=== PATIENT | female | born 1970 | race Caucasian/White ===

== ENCOUNTER 2019-07-10 15:50 | Emergency (ER) | payer OTHER ==
[2019-07-10] MEDS ORDERED: NS 0.9% 1000 ML** 1,000 ML IV ONE (16:39)
[2019-07-10] MEDS ORDERED: Ketorolac INJ* 30 MG/ML 1 ML VIAL IV PUSH ONE (16:39)
[2019-07-10 17:08] LABS: ABS Basophils 0.1 10^3/ul (0-0.2); ABS Eosinophils 0.1 10^3/ul (0-0.6); ABS Lymphocytes 1.7 10^3/ul (1.0-4.8); ABS Monocytes 0.4 10^3/ul (0-0.8); ABS Neutrophils 10.5 10^3/ul (1.5-7.7); Eosinophil % 1.1 %; Hematocrit 31 % (35-47); Hemoglobin 10.1 g/dL (12.0-16.0); Mean Corpuscular HGB Conc 33 g/dL (31-36); Mean Corpuscular Hemoglobin 28 pg (27-31); Mean Corpuscular Volume 86 fL (80-97); Mean Platelet Volume 7.6 fL (7.4-10.4); Platelet Count 377 10^3/uL (150-450); Red Blood Count 3.59 10^6 /uL (3.70-4.87); Red Cell Distribution Width 14 % (10-15); White Blood Count 12.8 10^3/uL (3.5-10.8)
--- NOTE | 2019-07-10 19:18 | ED ---
GI/ HPI - HPI Summary HPI Summary: 48 year old F presenting to [facility] accompanied by a supervisor boiler repair with a chief complaint of genitourinary pain and vaginal bleeding. Her bleeding onset 06/11/19 , and her severe pain onset today 07/10/19, alternating between steady and cramping pain. The patient rates the pain 10/10 in severity. Symptoms aggravated by nothing. Symptoms alleviated by subjectively high dosages of Motrin. The last time she took Motrin was this afternoon today. Patient has a history of dysmenorrhea. She has been experiencing constant abdominal pain every day unless she took Motrin, but the pain has never been as severe as it is today. Patient reports that the pain is preventing her from standing up, is causing her to sweat profusely, become dizzy, and experience near-syncopal events. While the patient has been bleeding, she has been passing large blood clots. Patient has previously been to the ED for similar symptoms on 06/24/19, and was discharged and prescribed a single control pill with the expectation that she would receive a formal control prescription through her follow-up OBGYN. However, her OBGYN clinic failed to follow up with the prescription. - History of Current Complaint Chief Complaint: EDVaginalBleeding Time Seen by Provider: 07/10/19 16:24 Stated Complaint: ABD PAIN PER PT Hx Obtained From: Patient, Family/Ethnic Origins Teacher - supervisor boiler repair Onset/Duration: Started Hours Ago - sometime today Timing: Constant Current Severity: Severe Vaginal Bleeding Description: Clots Pain Intensity: 10 Location of Pain: Diffuse Additional Location for Females: Uterus Pain Characteristics: Cramping Associated Signs and Symptoms: Positive: Diaphoresis, Other: - dizziness and near-syncopal events Additional Signs & Symptoms: Positive: Vaginal Bleeding Aggravating Factor(s): Nothing Alleviating Factor(s): Medication - Motrin - Allergy/Home Medications Allergies/Adverse Reactions: Allergies Allergy/AdvReac Type Severity Reaction Status Date / Time No Known Allergies Allergy Verified 06/24/19 18:28 PMH/Surg Hx/FS Hx/Imm Hx Endocrine/Hematology History: Denies: Hx Diabetes Cardiovascular History: Reports: Other Cardiovascular Problems/Disorders - hemochromatosis Respiratory History: Reports: Hx Asthma Sensory History: Reports: Hx Contacts or Glasses Opthamlomology History: Reports: Hx Contacts or Glasses - Cancer History Hx Chemotherapy: No Hx Radiation Therapy: No - Surgical History Surgical History: Yes Surgery Procedure, Year, and Place: oopherectomy [address] [facility] Infectious Disease History: No Infectious Disease History: Denies: Traveled Outside the [place] in Last 30 Days - Family History Known Family History: Positive: Blood Disorder - hemochromatosis, paternal, Other - breast CA and leukemia in mother - Social History Alcohol Use: Daily Alcohol Amount: two drinks after work Hx Substance Use: No Substance Use Type: Reports: None Hx Tobacco Use: Yes Smoking Status (MU): Heavy Every Day Tobacco Smoker Type: Cigarettes Amount Used/How Often: 1 PPD Review of Systems Negative: Fever Positive: Vomiting, Diarrhea All Other Systems Reviewed And Are Negative: Yes Physical Exam - Summary Physical Exam Summary: Appearance: The patient is in obvious pain and distress. Skin: The skin is warm and dry, and skin color reflects adequate perfusion. HEENT: The head is normocephalic and atraumatic. The pupils are equal and reactive. The conjunctivae are clear and without drainage. Nares are patent and without drainage. Mouth reveals moist mucous membranes, and the throat is without erythema and exudate. The external ears are intact. The ear canals are patent and without drainage. The tympanic membranes are intact. Neck: The neck is supple with full range of motion and non-tender. There are no carotid bruits. There is no neck vein distension. Respiratory: Chest is non-tender. Lungs are clear to auscultation and breath sounds are symmetrical and equal. Cardiovascular: Heart is regular rate and rhythm. There is no murmur or rub auscultated. There is no peripheral edema and pulses are symmetrical and equal. Abdomen: The abdomen is soft and non-tender. There are normal bowel sounds heard in all four quadrants and there is no organomegaly palpated. Musculoskeletal: There is no back tenderness noted. Extremities are non-tender with full range of motion. There is good capillary refill. There is no peripheral edema or calf tenderness elicited. Neurological: Patient is alert and oriented to person, place and time. The patient has symmetrical motor strength in all four extremities. Cranial nerves are grossly intact. Deep tendon reflexes are symmetrical and equal in all four extremities. Psychiatric: The patient has an appropriate affect and does not exhibit any anxiety or depression. Triage Information Reviewed: Yes Vital Signs On Initial Exam: Initial Vitals Temp Pulse Resp BP Pulse Ox 97.8 F 98 28 96/61 98 07/10/19 15:52 07/10/19 15:52 07/10/19 15:52 07/10/19 15:52 07/10/19 15:52 Vital Signs Reviewed: Yes Appearance: Positive: Pain Distress Diagnostics - Vital Signs Vital Signs Temp Pulse Resp BP Pulse Ox 07/10/19 18:00 75 99 07/10/19 17:00 81 15 100 07/10/19 16:41 72 12 171/82 99 07/10/19 16:18 73 25 117/60 100 07/10/19 16:13 76 100 07/10/19 15:52 97.8 F 98 28 96/61 98 - Laboratory Lab Results: Lab Results 07/10/19 07/10/19 Range/Units 16:57 16:57 WBC 12.8 H (3.5-10.8) 10^3/uL RBC 3.59 L (3.70-4.87) 10^6 /uL Hgb 10.1 L (12.0-16.0) g/dL Hct 31 L (35-47) % MCV 86 (80-97) fL MCH 28 (27-31) pg MCHC 33 (31-36) g/dL RDW 14 (10-15) % Plt Count 377 (150-450) 10^3/uL MPV 7.6 (7.4-10.4) fL Neut % (Auto) 82.3 % Lymph % (Auto) 13.0 % [place] % (Auto) 3.0 % Eos % (Auto) 1.1 % Baso % (Auto) 0.6 % Absolute Neuts (auto) 10.5 H (1.5-7.7) 10^3/ul Absolute Lymphs (auto) 1.7 (1.0-4.8) 10^3/ul Absolute Monos (auto) 0.4 (0-0.8) 10^3/ul Absolute Eos (auto) 0.1 (0-0.6) 10^3/ul Absolute Basos (auto) 0.1 (0-0.2) 10^3/ul Absolute Nucleated RBC 0.0 10^3/ul Nucleated RBC % 0.0 C-Reactive Protein 2.85 (<8.01) mg/L Result Diagrams: 07/10/19 16:57 Lab Statement: Any lab studies that have been ordered have been reviewed, and results considered in the medical decision making process. Re-Evaluation - Re-Evaluation First Eval Re-Evaluation Time: 19:09 Comment: ED Provider discussed with patient follow-up with Dr. Barr, Radiology. Patient agreed and will be discharged to home. GIGU Course/Dx - Course Course Of Treatment: Ms. Cook has had continued abdominal pain and bleeding in the 2 weeks and she was here. When she was here a CT scan revealed multiple fibroids including one central quite large one. She was referred to [facility] but hasn't seen them yet because of difficulty with the [place] insurance. She was in quite a bit of pain on arrival. She had been using ibuprofen pretty successfully until today. She was given IV ketorolac with good results here. Her hemoglobin has dropped from 12-10 in the 2 weeks. I consult with Dr. Marks who came and saw the patient. She is going to follow-up with him and was feeling improved. I gave her prescription for tramadol for symptomatic relief. - Diagnoses Provider Diagnoses: Fibroids - Physician Notifications Discussed Care Of Patient With: Elliot Barr Time Discussed With Above Provider: 17:30 Instructed by Provider To: Other - ED provider discussed patient follow-up with Dr. Barr, Radiology. Discharge ED - Sign-Out/Discharge Documenting (check all that apply): Patient Departure - home Patient Received Moderate/Deep Sedation with Procedure: No - Discharge Plan Condition: Stable Disposition: HOME Prescriptions: traMADol TAB* [Ultram*] 50 mg PO Q6HR PRN #20 tab MDD 4 PRN Reason: Pain Patient Education Materials: Dysmenorrhea (ED) Referrals: Elliot Barr MD [Medical Doctor] - 1 Day Marsha Brandon [Primary Care Provider] - 3 Days Additional Instructions: Please follow up with Dr. Barr, Radiologist, tomorrow. Additionally, please follow up with your primary care provider within the next three days. Return to the ED if you notice new or worsening symptoms. - Billing Disposition and Condition Condition: STABLE Disposition: Home - Attestation Statements Document Initiated by Scribe: Yes Documenting Scribe: Anders Canales and Lela Hernandez Provider For Whom Scribe is Documenting (Include Credential): Og Lopez MD Scribe Attestation: I, Anders Hernandez, scribed for Og Lopez MD on at 2136. Scribe Documentation Reviewed: Yes Provider Attestation: The documentation as recorded by the rolaibbrandie, Anders Hernandez accurately reflects the service I personally performed and the decisions made by me, Og Lopez MD Status of Scribe Document: Viewed
[2019-07-10 19:38] VITALS: BP 141/83
== END 2019-07-10 19:35 | disposition home or self-care (01) ==
LOC: ED 15:50
DX: D25.9 Leiomyoma of uterus, unspecified (principal); R10.2 Pelvic and perineal pain; N93.9 Abnormal uterine and vaginal bleeding, unspecified; R61 Generalized hyperhidrosis; R42 Dizziness and giddiness; R55 Syncope and collapse; R11.10 Vomiting, unspecified; R19.7 Diarrhea, unspecified; F17.210 Nicotine dependence, cigarettes, uncomplicated
CPT/HCPCS: 36415; 85025; 86140; 96361; 96374; 99282; J1885

== ENCOUNTER 2019-12-18 09:27 | Observation (INO) | payer OTHER ==
[2019-12-18] MEDS ORDERED: diPHENhydraMINE PO* 25 MG ONE (11:48)
[2019-12-18] MEDS ORDERED: Ibuprofen TAB* 800 MG PO ONE (12:00)
[2019-12-18] MEDS ORDERED: Ondansetron INJ* 2 MG/ML VIAL ONE (12:13)
[2019-12-18] MEDS ORDERED: Scopolamine 1.5 mg* PATCH ONE (12:13)
[2019-12-18] MEDS ORDERED: LORazepam TAB(*) 1 MG ONE (12:14)
[2019-12-18] MEDS ORDERED: oxyCODONE SR TAB(*) 10 MG TAB.SR ONE (12:14)
[2019-12-18 12:30] LABS: Hematocrit 39 % (35-47); Hemoglobin 12.8 g/dL (12.0-16.0); Mean Corpuscular HGB Conc 33 g/dL (31-36); Mean Corpuscular Hemoglobin 28 pg (27-31); Mean Corpuscular Volume 85 fL (80-97); Mean Platelet Volume 7.7 fL (7.4-10.4); Platelet Count 289 10^3/uL (150-450); Red Blood Count 4.58 10^6 /uL (3.70-4.87); Red Cell Distribution Width 14 % (10-15); White Blood Count 10.3 10^3/uL (3.5-10.8)
[2019-12-18] MEDS ORDERED: Clindamycin 900 MG/D5W BAG(*) 900 MG/50 ML BAG IVPB ONE (12:30)
[2019-12-18 12:40] LABS: Activated Partial Thrombo Time 36.2 seconds (26.0-38.0); INR 0.93 (0.82-1.09)
[2019-12-18] MEDS ORDERED: Heparin 2 UNITS/ML IVPREMIX* 2,000 ML IV ONE (12:47)
[2019-12-18] MEDS ORDERED: Lidocaine 1% INJ* 10 MG/ML 30 ML SDV ONE (12:47)
[2019-12-18] MEDS ORDERED: Iohexol 350 (CONTRAST) 200 ML MDV IV ONE (12:47)
[2019-12-18] MEDS ORDERED: HYDROmorphone PCA* 20 MG/20 ML PCA.SYRING PCA SCH (13:00)
[2019-12-18] MEDS ORDERED: Ketorolac INJ* 30 MG/ML 1 ML VIAL ONE (13:01)
[2019-12-18] MEDS ORDERED: Midazolam* 1 MG/ML 5 ML VIAL (5 MG) ONE (13:01)
[2019-12-18] MEDS ORDERED: fentaNYL* 50 MCG/ML 5 ML VIAL (250 MCG VIAL) ONE (13:01)
[2019-12-18 13:08] LABS: ABS Basophils 0.1 10^3/ul (0-0.2); ABS Eosinophils 0.4 10^3/ul (0-0.6); ABS Lymphocytes 2.7 10^3/ul (1.0-4.8); ABS Monocytes 0.5 10^3/ul (0-0.8); ABS Neutrophils 6.7 10^3/ul (1.5-7.7); Lymphocyte % 26.5 %
[2019-12-18] MEDS ORDERED: nitroGLYCERIN DRIP* 25,000 MCG/250 ML BTL ONE (13:16)
[2019-12-18] MEDS ORDERED: Iodixanol 320 (CONTRAST) 100 ML SDV ONE (13:43)
[2019-12-18] MEDS ORDERED: HYDROmorphone INJ1* 1 MG/ML SYRINGE ONE (14:46)
--- NOTE | 2019-12-18 17:11 | PN ---
Progress Note - Progress Note Date of Service: 12/18/19 SOAP: Date of Service: 12/18/19 Subjective: Pain rated 8/10, but "my sciatic pain hurts too from laying flat". Denies nausea. Objective: The patient has only used 0.8 mg of dilaudid SENIOR BIOSTATISTICIAN/GROUP LEADER. Selected Entries 12/18/19 16:44 Heart Rate 70 Respiratory 15 Rate Blood Pressure 174/85 (mmHg) Blood Pressure 113 Mean O2 Sat by Pulse 97 Oximetry Sleeping, but arousable to voice NAD, AAO x 3 Right groin is soft, nontender Dressing is CDI 2+ pulses at right CHLORINE CELLS OPERATOR and pop Abd is soft, suprapubic area tender to deep palpation Right leg is grossly neuromuscular intact Assessment: 49 YOF status post uterine fibroid arterial embolization. Plan: 1. Patient reminded to use SENIOR BIOSTATISTICIAN/GROUP LEADER for pain control. 2. Add Ativan 0.5mg IV Q 6 hours PRN for pain & anxiety. 3. Otherwise routine protocol post UFE management.
[2019-12-18] MEDS ORDERED: LORazepam INJ* 2 MG/ML 1 ML VIAL IV PUSH PRN (17:13)
[2019-12-18] MEDS ORDERED: Lorazepam PYXIS KEY PRN (17:13)
[2019-12-18] MEDS: NS 0.9% 1000 ML** 1,000 ML IV SCH (17:57)
[2019-12-18] MEDS: Ondansetron INJ* 2 MG/ML VIAL IV SCH (21:15)
[2019-12-18] MEDS: Ketorolac INJ* 15 MG/ML 1 ML VIAL IV PUSH SCH (21:15)
--- NOTE | 2019-12-18 21:26 | HP ---
CC: Dr. Barr * HISTORY AND PHYSICAL: DATE OF ADMISSION: 12/18/19 PROVIDER: Darya Sherman NP PRIMARY CARE PROVIDER: Marsha Brandon NP ATTENDING PHYSICIAN WHILE IN THE HOSPITAL: Katelyn Enrique MD * (dictated by Darya Sherman NP). CHIEF COMPLAINT: Status post uterine fibroid embolization. HISTORY OF PRESENT ILLNESS: Ms. Cook is a 49-year-old female with past medical history significant for menorrhagia, who [place] [facility] [place] uterine fibroid embolization with Dr. Barr. The patient has a history of heavy vaginal bleeding, failed conservative measures, so opted to proceed with a uterine fibroid embolization with Dr. Barr. PAST MEDICAL HISTORY: Significant for: 1. Uterine myoma. 2. Menorrhagia. PAST SURGICAL HISTORY: None. HOME MEDICATIONS: 1. Gabapentin 100 mg as needed daily. 2. Albuterol 2 puffs inhaled daily. ALLERGIES: No known drug allergies. FAMILY HISTORY: Father with a history of hypertension. Mother with diabetes, cancer and hypertension, due to leukemia; CLL, ALL. SOCIAL HISTORY: The patient smokes half a pack per day. Drinks wine, 1 drink daily. She reports occasional marijuana use. She currently lives with a roommate. Surrogate decision maker in the event she is unable to make her own decision is her sister. She is a full code. REVIEW OF SYSTEMS: The patient denies any fever, chills, chest pain, shortness of breath. Denies any nausea, vomiting, or diarrhea. She does report lower abdominal pain and back pain. Currently, she denies any urinary frequency, urgency, or pain with urination. She denies any recent illnesses. PHYSICAL EXAMINATION GENERAL: At this time, Ms. Cook is a 49-year-old female. She is resting in her hospital bed. She appears to be have moderate amount of lower abdominal and back pain postprocedure. She is drowsy. VITAL SIGNS: Blood pressure is 155/77, heart rate is 78, respirations are 18, O2 saturation is 96%, temperature 97.4. HEENT: Head is atraumatic, normocephalic. Eyes: EOMs are intact. Sclerae anicteric and not pale. Oral mucosa appears to be moist. NECK: Supple. LUNGS: Clear to auscultation bilaterally. No wheezes, rales, or rhonchi. CARDIAC: S1, S2. Regular rate and rhythm. No murmurs, rubs, or gallops. ABDOMEN: Soft. Bowel sounds are present x4. EXTREMITIES: She is able to move all 4 extremities. There is no clubbing or cyanosis. Pedal pulses are +2 bilaterally. NEUROLOGIC: She is drowsy. She is alert, and oriented x3. Speech is clear. SKIN: Intact. LABORATORY DATA AND DIAGNOSTIC STUDIES: WBCs are 10.3, RBCs 4.58, hemoglobin 12.8, hematocrit 39, platelet count 289. INR is 0.93. APTT was 36.2. Beta hCG was 0.68. Sodium 138, potassium 4.3, chloride 105, carbon dioxide was 26, anion gap was 7, BUN was 8, creatinine 0.71, glucose was 86. Calcium 9.4. IMPRESSION AND PLAN: Ms. Cook is a 49-year-old female with past medical history significant for menorrhagia and uterine fibroid, who [place] [facility] [place] uterine fibroid embolization with Dr. Barr. She will be admitted under observation for: 1. Status post uterine fibroid embolization. She will be placed on Dilaudid CEMENT BREAKER , will continue Toradol as needed for pain. She will have normal saline, IV fluids and Ativan as needed for anxiety. 2. FEN: She can have a regular diet. 3. DVT prophylaxis: Encourage ambulation when able. 4. Code status: She is a full code. TIME SPENT: Time spent on this admission was 45 minutes, greater than half that time was spent at the bedside reviewing events leading thus far to her hospitalization, performing physical exam, and reviewing my plan of care. I have discussed this with my attending Dr. Katelyn Enrique, she is in agreement with my plan. DARYA SHERMAN, LORENA [id number]/TANYA #: [id number] RASHIDA
[2019-12-19] MEDS: NS 0.9% 1000 ML** 1,000 ML IV SCH (02:15)
[2019-12-19] MEDS: Ketorolac INJ* 15 MG/ML 1 ML VIAL IV PUSH SCH (03:05)
[2019-12-19] MEDS: Ondansetron INJ* 2 MG/ML VIAL IV SCH (03:05)
--- NOTE | 2019-12-19 08:46 | PN ---
Progress Note - Progress Note Date of Service: 12/19/19 SOAP: Subjective: Right pelvic pain rated at 2/10 with occasional "flare up". Denies nausea or emesis. Has been drinking clear fluids. + void. Walk independently Feels "itchy" again (as she did prior to her UFE and for 2 days prior) Objective: Selected Entries 12/19/19 08:20 Temperature 97.9 F Pulse Rate 74 Respiratory 16 Rate Blood Pressure 150/75 (mmHg) Blood Pressure 100 Mean O2 Sat by Pulse 98 Oximetry NAD, AAO x 3 Abdomen is soft and nontender Right groin is soft and nontender Dressing is CDI 2+ pulses are readily palpable at right DECKHAND CLAM DREDGE, pop and DPA Right leg neuromuscular intact grossly No rash, but skin appears dry and flaky Assessment: 49 YOF POD #1 status post Uterine Fibroid Arterial Embolization with pain and nausea controlled. Plan: 1. Transition IV to PO meds. 2. Encourage increased PO intake with breakfast. 3. Patient provided lotion to apply to dry skin. 4. D/C medications as follows: Toradol 10 mg PO Q 6 hours x 3 days (Dispense #15 with one refill) AFTER Toradol is complete: Ibuprofen 400 mg PO Q 6 hours OR Naprosyn 225 mg PO Q 8 hours for 3-5 days (do not take both) [place] 5/325, take 1 or 2 tablets by mouth Q 6 hours PRN breakthrough pain ( Dispense #40) Zofran 4 mg PO Q 6 hours x 7 days (Dispense #30 with one refill) Scopolamine 1.5 mg transdermal to mastoid process. On 12/21/19 at 900 AM, remove current patch, replace with new patch and wear x 3 days. Drink one cup of laxative tea daily (For example, "Smooth Move") for one week.
[2019-12-19] MEDS ORDERED: HYDROcodone/ACETAMIN 5-325 MG* 1 TAB PO PRN (08:51)
[2019-12-19] MEDS ORDERED: Ondansetron TAB* 4 MG PO SCH (09:00)
[2019-12-19] MEDS ORDERED: Ketorolac TAB * 10 MG TAB PO SCH (09:00)
[2019-12-19] MEDS ORDERED: Albuterol HFA INHALER* 8 gm MDI INH SCH (09:00)
[2019-12-19 11:43] VITALS: BP 159/69
--- NOTE | 2019-12-19 16:03 | DS ---
CC: Marsha Brandon NP * DISCHARGE SUMMARY: DATE OF ADMISSION: 12/18/19 DATE OF DISCHARGE: 12/19/19 PRIMARY CARE PROVIDER: Marsha Brandon NP. CONSULTING PHYSICIAN: Dr. Elliot Barr. ATTENDING PHYSICIAN: Dr. Ashlee Pierre * (dictated by Naomi Forbes NP) PRIMARY DIAGNOSIS: Status post uterine fibroid embolization. SECONDARY DIAGNOSES: 1. Uterine myoma. 2. Menorrhagia. PROCEDURES WHILE IN THE HOSPITAL: Uterine fibroid embolization on 12/18/19 DISCHARGE HOME MEDICATIONS: Continued home medications: 1. Gabapentin 100 mg as needed daily. 2. Albuterol 2 puffs inhaled daily. New home medications: 1. Toradol 10 mg p.o. q.6 hours x3 days, dispensed 15 with 1 refill. 2. Ibuprofen 500 mg p.o. q.6 hours or naproxen 225 mg p.o. q.8 hours for 3 to 5 days after taking Toradol. Do not take both. 3. Sleepy Eye 5/325, take 1 to 2 tabs by mouth q.6 hours p.r.n. for breakthrough pain, dispensed 40. 4. Zofran 4 mg p.o. q.6 hours x7 days, dispensed 30 with 1 refill. 5. Scopolamine 1.5 mg transdermal to mastoid process on Sunday12/21/19 at 9 a.m., remove current patch and replace with new patch and wear for 3 days. 6. Smooth Move tea daily HISTORY OF PRESENT ILLNESS/HOSPITAL COURSE: Ms. Cook is a 49-year-old female with past medical history significant for uterine myoma and menorrhagia, who presented to [facility] for elective uterine fibroid embolization with Dr. Elliot Barr. Please see history and physical dictated by Darya Sherman NP for complete summary of the events leading to this hospitalization, but in short the patient has a history of heavy menstrual bleeding and failed conservative measures, therefore opted to proceed with uterine fibroid embolization with Dr. Elliot Barr. During this hospital stay, the patient has recovered nicely from her procedure. Currently, she is ambulating without difficulty. She is tolerating a regular diet. She is tolerating p.o. pain medication. Her pain is tolerable. She does not have any nausea. She is voiding without difficulty. The patient is stable for discharge home. Vital signs: Temp 97.9, HR 74, RR 16, O2 saturation is 98% on room air, BP 150/ 75. REVIEW OF SYSTEMS: The patient reports mild "2 or 3/10" pain to right groin. The patient denies nausea, vomiting, diarrhea, dysuria, weakness, dizziness, chest pain, shortness of breath. Fourteen point review of system was completed and all were negative. PHYSICAL EXAMINATION: General: Ms. Cook is a 49-year-old female who is sitting on the edge of the bed. Appears to be in no acute distress. Appears stated age. HEENT: EOMs intact. Sclerae without icterus. Oral mucosa is moist without lesion. Neck: No lymphadenopathy. Respiratory: Symmetric chest expansion. No accessory muscle use. Lungs are clear to auscultation. No rhonchi, wheezes, or rales. CV: Regular rate and rhythm. S1, S2 present. No murmurs, rubs, or gallops. No JVD. Extremities: Skin is warm and smooth bilaterally. No edema. No clubbing or cyanosis. Musculoskeletal: No pain or deformities. Abdomen: Soft, nontender to palpation. Bowel sounds are normoactive. Right groin site access is soft, dressing is clean, dry, and intact. The patient reports mild pain with palpation. Neuro: Awake, alert, and oriented x4. Motion is 5/5 in upper and lower extremities. Skin: Grossly intact without lesion. DIAGNOSTIC STUDIES/LAB DATA: WBC 10.3, hemoglobin 12.8, hematocrit 39, platelets 289. ASSESSMENT AND PLAN: Ms. Cook is a 49-year-old female with a past medical history significant for uterine myoma and menorrhagia; who presented to [facility] for an elective uterine fibroid embolization with Dr. Elliot Barr. The patient is stable for discharge home. DISCHARGE PLAN: 1. Status post uterine fibroid embolization: The patient is day 1 postop. Pain and nausea are controlled. The patient will be discharged with Toradol, Sleepy Eye, Zofran, scopolamine. The patient will be encouraged to use ibuprofen or naproxen OTC. The patient will be encouraged to use Laxa Tea including Smooth Move. The patient should read discharge instructions for uterine fibroid embolization printed for her. The patient should notify physician or accounts receivable associate for any of the listed symptoms. The patient should follow the medications, activity and diet recommendations. The patient should monitor menstrual bleeding. The patient should monitor groin puncture site. The patient will receive a call from interventional radiology nurse in 2 to 3 days and in 1 week. The patient will follow up with Dr. Elliot Barr in approximately 6 weeks. 2. Uterine myoma: The patient is to follow up with primary care. 3. Menorrhagia: The patient is status post uterine fibroid embolization. The patient is to follow up with her accounts receivable associate and Dr. Elliot Barr as recommended. 4. Education: The patient is educated on medication. The patient is educated on signs and symptoms, new or worsening condition, when to return to the emergency department. The patient stated understanding. This is a complex medical history and hospital stay. For further details, please see the entire medical record. TIME SPENT: Approximately 35 minutes were spent on this discharge, greater than half that time was spent face to face with the patient discussing discharge plans and instructions. PLAN: The plan was discussed with my attending Dr. Ashlee Pierre, who agrees with my plan of care. NAOMI FORBES, LORENA [id number]/CPS #: [id number] RASHIDA
== END 2019-12-19 13:12 | disposition home or self-care (01) ==
LOC: CHICATH 09:27 → SSU 17:32
PROVIDERS: ADMIT Radiology Diagnostic Radiology; ATTEND Internal Medicine
DX: N92.4 Excessive bleeding in the premenopausal period (principal); R10.2 Pelvic and perineal pain; D25.9 Leiomyoma of uterus, unspecified; N92.0 Excessive and frequent menstruation with regular cycle; D64.9 Anemia, unspecified; F17.210 Nicotine dependence, cigarettes, uncomplicated
CPT/HCPCS: 36415; 37243; 75736; 76937; 84702; 85025; 85610; 85730; 96374; 96375; 96376; 99156; 99157; A9270-GY; C1769; C1884; C1887; G0378; J1170; J1644; J1885; J2060; J2250; J2405; J3010

== ENCOUNTER 2023-11-17 17:11 | Inpatient (IN) ==
[2023-11-17 18:48] LABS: ABS Basophils 0.1 10^3/uL (0.0-0.1); ABS Eosinophils 0.4 10^3/uL (0.0-0.5); ABS Lymphocytes 2.9 10^3/uL (1.0-4.8); ABS Monocytes 0.7 10^3/uL (0.0-0.9); ABS Neutrophils 7.5 10^3/uL (1.5-7.6); ABS Nucleated RBC 0.02 10^3/ul; Eosinophil % 3.1 %; Hematocrit 44.9 % (35-45); Hemoglobin 15.3 g/dL (11.5-14.3); Lymphocyte % 25.3 %; Mean Corpuscular Hemoglobin 31.7 pg (27-33); Mean Corpuscular Hgb Conc 34.1 g/dL (31-36); Mean Corpuscular Volume 92.9 fL (80-97); Mean Platelet Volume 7.7 fL (7.5-11.2); Nucleated Red Blood Cells % 0.1 %/100WBC (0.0-0.8); Platelet Count 317 10^3/uL (150-450); Red Blood Count 4.83 10^6/uL (3.63-4.92); Red Cell Distribution Width 14.4 % (12-17); White Blood Count 11.6 10^3/uL (3.8-11.8)
[2023-11-17 18:52] LABS: Urine Appearance Cloudy; Urine Bilirubin 1+ (Negative); Urine Blood Negative (Negative); Urine Color Yellow; Urine Glucose Negative (Negative); Urine Ketones Trace (Negative); Urine Nitrite Negative (Negative); Urine Protein Negative (Negative); Urine Specific Gravity 1.016 (1.002-1.030); Urine Urobilinogen Negative (Negative)
[2023-11-17 19:06] LABS: ALT 31 U/L (7-52); AST 20 U/L (13-39); Albumin/Globulin Ratio 1.5 (1-3); Alkaline Phosphatase 111 U/L (35-149); Anion Gap 8 mmol/L (2-16); Blood Urea Nitrogen 7 mg/dL (6-24); CO2 Carbon Dioxide 27 mmol/L (22-32); Chloride 104 mmol/L (101-111); Creatinine, Serum 0.59 mg/dL (0.51-0.95); Globulin 2.7 g/dL (2-4); Glucose 122 mg/dL (70-100); Potassium 3.1 mmol/L (3.5-5.0); Sodium 139 mmol/L (135-145); Total Bilirubin 0.4 mg/dL (0.2-1.0); Total Protein 6.7 g/dL (6.4-8.9)
[2023-11-17 19:07] LABS: Acetaminophen < 15 mcg/mL; Alcohol, S < 13 mg/dL (<13); Salicylate < 2.50 mg/dL (<30)
[2023-11-17 19:15] LABS: Urine Benzodiazepine Screen None Detected (None Detect); Urine Cannabinoids Screen None Detected (None Detect); Urine Opiates Screen None Detected (None Detect)
[2023-11-17] MEDS ORDERED: Iohexol 350 (CONTRAST) 500 ML MDV IV ONE (19:23)
[2023-11-17] MEDS ORDERED: Potassium Chlor 20 meq TAB.ER PO ONE (21:45)
[2023-11-17] MEDS ORDERED: Albuterol HFA INHALER 8 gm MDI INH ONE ×2 (23:05)
[2023-11-18] MEDS ORDERED: Nicotine GUM 2MG FRUIT FLAVOR PO PRN (01:42)
[2023-11-18] MEDS: Albuterol HFA INHALER 8 gm MDI INH PRN ×3 (05:46→16:57)
[2023-11-18] MEDS ORDERED: LORazepam PO 0-6 for WAM protocol PO SCH (07:00)
[2023-11-18] MEDS: Folic Acid TAB* 1 MG DAILY PO SCH (09:26)
[2023-11-18] MEDS: SPIRIVA RESPIMAT INH SCH (09:26)
[2023-11-18] MEDS: Vitamin THERAPEUTIC TAB PO SCH (09:26)
[2023-11-18] MEDS: Nicotine PATCH 21 MG/24 HR PATCH TRANSDERM SCH (09:27)
[2023-11-18] MEDS ORDERED: Potassium Chlor 10 meq TAB PO ONE (16:00)
[2023-11-18] MEDS: Amphetamine MIXED SALT 10mgTAB PO SCH (16:21)
[2023-11-19] MEDS: Albuterol HFA INHALER 8 gm MDI INH PRN ×3 (03:27→20:46)
[2023-11-19] MEDS: Nicotine PATCH 21 MG/24 HR PATCH TRANSDERM SCH (07:47)
[2023-11-19] MEDS: SPIRIVA RESPIMAT INH SCH (07:48)
[2023-11-19] MEDS: Venlafaxine XR 75 mg PO SCH (07:49)
[2023-11-19] MEDS: Thiamine TAB* 100 MG TAB DAILY (@ T+1) PO SCH (07:49)
[2023-11-19] MEDS: Folic Acid TAB* 1 MG DAILY PO SCH (07:49)
[2023-11-19] MEDS: Vitamin THERAPEUTIC TAB PO SCH (07:50)
[2023-11-19] MEDS: Amphetamine MIXED SALT 10mgTAB PO SCH ×2 (07:50→12:41)
[2023-11-19 08:37] LABS: HDL Cholesterol 72.8 mg/dL
[2023-11-19] MEDS ORDERED: Potassium Chlor 10 meq TAB PO SCH (09:00)
[2023-11-20] MEDS: Venlafaxine XR 75 mg PO SCH ×2 (06:55→11:00)
[2023-11-20] MEDS: Amphetamine MIXED SALT 10mgTAB PO SCH ×2 (06:55→12:44)
[2023-11-20] MEDS: SPIRIVA RESPIMAT INH SCH (08:47)
[2023-11-20] MEDS: Folic Acid TAB* 1 MG DAILY PO SCH (10:58)
[2023-11-20] MEDS: Thiamine TAB* 100 MG TAB DAILY (@ T+1) PO SCH (10:59)
[2023-11-20] MEDS: Nicotine PATCH 21 MG/24 HR PATCH TRANSDERM SCH (10:59)
[2023-11-20] MEDS: Vitamin THERAPEUTIC TAB PO SCH (11:00)
[2023-11-20] MEDS: Albuterol HFA INHALER 8 gm MDI INH PRN ×2 (14:45→20:49)
[2023-11-20] MEDS: Al Hydrox/Mg Hydrox/Simet LIQ 30 ML UDC PO PRN (20:05)
[2023-11-21] MEDS: Albuterol HFA INHALER 8 gm MDI INH PRN ×2 (08:22→20:54)
[2023-11-21] MEDS: Thiamine TAB* 100 MG TAB DAILY (@ T+1) PO SCH (08:23)
[2023-11-21] MEDS: Venlafaxine XR 75 mg PO SCH (08:23)
[2023-11-21] MEDS: Folic Acid TAB* 1 MG DAILY PO SCH (08:23)
[2023-11-21] MEDS: Amphetamine MIXED SALT 10mgTAB PO SCH ×2 (08:23→14:41)
[2023-11-21] MEDS: Vitamin THERAPEUTIC TAB PO SCH (08:23)
[2023-11-21] MEDS: Nicotine PATCH 21 MG/24 HR PATCH TRANSDERM SCH (08:26)
[2023-11-21] MEDS: SPIRIVA RESPIMAT INH SCH (11:33)
[2023-11-22] MEDS: SPIRIVA RESPIMAT INH SCH (07:54)
[2023-11-22] MEDS: Amphetamine MIXED SALT 10mgTAB PO SCH ×2 (07:58→13:01)
[2023-11-22] MEDS: Venlafaxine XR 75 mg PO SCH (07:58)
[2023-11-22] MEDS: Folic Acid TAB* 1 MG DAILY PO SCH (07:59)
[2023-11-22] MEDS: Vitamin THERAPEUTIC TAB PO SCH (07:59)
[2023-11-22] MEDS: Nicotine PATCH 21 MG/24 HR PATCH TRANSDERM SCH ×2 (07:59→16:27)
[2023-11-22] MEDS: Thiamine TAB* 100 MG TAB DAILY (@ T+1) PO SCH (07:59)
[2023-11-22] MEDS: Albuterol HFA INHALER 8 gm MDI INH PRN (19:33)
[2023-11-22 19:41] VITALS: BP 141/86
[2023-11-23] MEDS: Albuterol HFA INHALER 8 gm MDI INH PRN (06:08)
[2023-11-23] MEDS: Venlafaxine XR 75 mg PO SCH (08:44)
[2023-11-23] MEDS: Nicotine PATCH 21 MG/24 HR PATCH TRANSDERM SCH (08:44)
[2023-11-23] MEDS: Thiamine TAB* 100 MG TAB DAILY (@ T+1) PO SCH (08:44)
[2023-11-23] MEDS: Folic Acid TAB* 1 MG DAILY PO SCH (08:44)
[2023-11-23] MEDS: Vitamin THERAPEUTIC TAB PO SCH (08:44)
[2023-11-23] MEDS: Amphetamine MIXED SALT 10mgTAB PO SCH ×2 (08:44→12:38)
[2023-11-23] MEDS: SPIRIVA RESPIMAT INH SCH (08:45)
[2023-11-23] MEDS: Al Hydrox/Mg Hydrox/Simet LIQ 30 ML UDC PO PRN (12:38)
== END 2023-11-23 14:30 | disposition home or self-care (01) | DRG 914 ==
LOC: ED 17:11 → EDHOLD 11-18 01:13 → BSU 11-18 02:20
PROVIDERS: ADMIT Psychiatry & Neurology Addiction Psychiatry; ATTEND Psychiatry & Neurology Addiction Psychiatry